=== PATIENT | male | born 1985 | race Caucasian/White ===

== ENCOUNTER 2017-06-05 10:34 | Emergency (ER) | payer SELFPAY, OTHER ==
[2017-06-05] MEDS: KETOROLAC 60 MG INJ IM (15:20)
== END 2017-06-05 15:32 | disposition home or self-care (01) ==
LOC: FTE 10:34
DX: K57.30 Diverticulosis of large intestine without perforation or abscess without bleeding (principal)
CPT/HCPCS: 96372; 99284-25